=== PATIENT | female | born 1955 | race Caucasian/White ===

== ENCOUNTER 2022-08-04 13:44 | Inpatient (IN) ==
[2022-08-04 18:12] LABS: Basophils % 0.6 % (0.0-0.8); Eosinophils # 0.1 10*3/uL (0.0-0.87); Eosinophils % 2.1 % (0.00-10.9); Hematocrit 45.7 VOL% (35.7-47.0); Hemoglobin 14.9 GM/DL (12.0-16.0); Immature Granulocytes % 0.3 %; Immature Granulocytes Absolute 0.02 #; Lymphocytes # 1.6 10*3/uL (1.4-4.0); Lymphocytes % 24.6 % (21.3-54.2); Mean Corpuscular HGB Conc 32.6 GM/DL (32-36); Mean Corpuscular Volume 83.7 FL (87-102); Mean Platelet Volume 11.8 FL (9.6-12.0); Monocytes # 0.6 10*3/uL (0.11-0.8); Monocytes % 8.2 % (1.7-12.7); Neutrophils % 64.2 % (38.7-73.9); Platelet Count 96 T/CUMM (130-400); Red Blood Count 5.46 MC/CUMM (3.8-5.5); Red Cell Distribution Width 13.7 % (9.3-17.3); White Blood Count 6.7 T/CUMM (4-12)
[2022-08-04 18:31] LABS: Albumin 3.3 G/DL (3.4-5.0); Bilirubin,Total 0.9 MG/DL (0.20-1.00); Calcium 9.2 MG/DL (8.5-10.1); Osmolality,Calculated 282.3 MOS/KG (273-304); Potassium 4.2 MMOL/L (3.5-5.1); Total Protein 7.8 G/DL (6.4-8.2)
[2022-08-04] MEDS ORDERED: cefTRIAXone 1,000 MG in SODIUM CHLORIDE 0.9% 100 ML IV STA (18:48)
[2022-08-04] MEDS ORDERED: SODIUM CHLORIDE 0.9% 1,000 ML IV STA (18:57)
[2022-08-04 19:29] LABS: Anisocytosis Slight; Microcytosis Slight; Platelet Estimate Decreased
[2022-08-04] MEDS ORDERED: hydrALAZINE 20 MG/1 ML VIAL IV PRN (20:05)
[2022-08-04] MEDS ORDERED: ACETAMINOPHEN 325 MG TABLET PO PRN (20:05)
[2022-08-04] MEDS ORDERED: VANCOMYCIN INJ 1,000 MG in SODIUM CHLORIDE 0.9% 250 ML IV STA (20:07)
[2022-08-04] MEDS: MORPHINE 2 MG/1 ML SYRINGE IV PRN (20:22)
[2022-08-04] MEDS: ONDANSETRON 4 MG/2 ML VIAL IV PRN (20:22)
[2022-08-04] MEDS: PIPERACILLIN/TAZOBACTAM 3,375 MG in SODIUM CHLORIDE 0.9% 100 ML IV SCH (22:58)
[2022-08-04] MEDS: SODIUM CHLORIDE 0.9% 1,000 ML IV SCH (22:58)
[2022-08-05] MEDS: ENOXAPARIN 40 MG/0.4 ML SYRINGE SUBCUT SCH ×2 (00:52→20:54)
[2022-08-05] MEDS: MORPHINE 2 MG/1 ML SYRINGE IV PRN ×3 (00:55→13:41)
[2022-08-05] MEDS: INSULIN REGULAR 100 UNIT/ML SUBCUT SCH ×5 (02:46→21:01)
[2022-08-05] MEDS: PIPERACILLIN/TAZOBACTAM 3,375 MG in SODIUM CHLORIDE 0.9% 100 ML IV SCH ×3 (04:16→20:52)
[2022-08-05 05:16] LABS: Basophils % 0.7 % (0.0-0.8); Eosinophils # 0.2 10*3/uL (0.0-0.87); Eosinophils % 3.2 % (0.00-10.9); Hematocrit 40.8 VOL% (35.7-47.0); Immature Granulocytes % 0.4 %; Immature Granulocytes Absolute 0.02 #; Lymphocytes # 1.4 10*3/uL (1.4-4.0); Lymphocytes % 25.2 % (21.3-54.2); Mean Corpuscular HGB Conc 31.9 GM/DL (32-36); Mean Corpuscular Volume 85.4 FL (87-102); Monocytes # 0.6 10*3/uL (0.11-0.8); Neutrophils % 59.5 % (38.7-73.9); Platelet Count 100 T/CUMM (130-400); Red Blood Count 4.78 MC/CUMM (3.8-5.5); Red Cell Distribution Width 13.6 % (9.3-17.3); White Blood Count 5.6 T/CUMM (4-12)
[2022-08-05 05:56] LABS: Albumin 2.8 G/DL (3.4-5.0); Bilirubin,Total 0.7 MG/DL (0.20-1.00); Calcium 8.8 MG/DL (8.5-10.1); Potassium 3.7 MMOL/L (3.5-5.1); Risk Ratio 2.86; Thyroid Stimulating Hormone 5.44 uIU/ml (0.358-3.74); Total Protein 6.6 G/DL (6.4-8.2); VLDL Cholesterol 18.2 MG/DL
[2022-08-05] MEDS: PANTOPRAZOLE 40 MG TABLET PO SCH ×2 (07:49→11:00)
[2022-08-05] MEDS: SODIUM CHLORIDE 0.9% 1,000 ML IV SCH ×3 (11:00→23:55)
[2022-08-05] MEDS ORDERED: DICLOFENAC SODIUM 75 MG TABLET PO PRN (11:12)
[2022-08-05 11:27] LABS: Bilirubin,Urine Negative (Negative); Blood, Urine Negative (Negative); Glucose,Urine (UA) Negative (Negative); Ketones,Urine Negative (Negative); Mucus,Urine Occasional /LPF (Occasional); Nitrite,Urine Negative (Negative); Protein,Urine Negative (Negative); RBC,Urine <1 /HPF (0-4); Squamous Epithelial Cell,Urine Occasional /HPF (0-10); Urine Appearance CLEAR (Clear); Urine Color Straw (Yellow); Urine Urobilinogen < 2.0 eU/dL (<2.0)
[2022-08-05] MEDS: MULTIVITAMIN (BEROCCA) TABLET PO SCH (13:41)
[2022-08-05] MEDS: DIVALPROEX ER 500 MG TABLET PO SCH (13:42)
[2022-08-05] MEDS: VANCOMYCIN INJ 1,000 MG in SODIUM CHLORIDE 0.9% 250 ML IV SCH (13:46)
[2022-08-05] MEDS: ONDANSETRON 4 MG/2 ML VIAL IV PRN (14:08)
[2022-08-05] MEDS: PHENAZOPYRIDINE 95 MG TABLET PO SCH (18:53)
[2022-08-06] MEDS: VANCOMYCIN INJ 1,000 MG in SODIUM CHLORIDE 0.9% 250 ML IV SCH ×2 (01:09→11:56)
[2022-08-06 05:02] LABS: Basophils # 0.1 10*3/uL (0.0-0.2); Eosinophils # 0.3 10*3/uL (0.0-0.87); Hematocrit 37.7 VOL% (35.7-47.0); Immature Granulocytes % 0.2 %; Immature Granulocytes Absolute 0.01 #; Lymphocytes # 1.7 10*3/uL (1.4-4.0); Lymphocytes % 33.7 % (21.3-54.2); Mean Corpuscular HGB Conc 31.8 GM/DL (32-36); Mean Corpuscular Volume 86.7 FL (87-102); Mean Platelet Volume 11.3 FL (9.6-12.0); Monocytes # 0.5 10*3/uL (0.11-0.8); Monocytes % 10.1 % (1.7-12.7); Platelet Count 96 T/CUMM (130-400); Red Blood Count 4.35 MC/CUMM (3.8-5.5); Red Cell Distribution Width 13.9 % (9.3-17.3)
[2022-08-06 05:20] LABS: Calcium 8.3 MG/DL (8.5-10.1); Potassium 4.1 MMOL/L (3.5-5.1)
[2022-08-06 05:22] LABS: Platelet Estimate Decreased
[2022-08-06] MEDS: PIPERACILLIN/TAZOBACTAM 3,375 MG in SODIUM CHLORIDE 0.9% 100 ML IV SCH ×3 (05:42→20:37)
[2022-08-06] MEDS: DIVALPROEX ER 500 MG TABLET PO SCH (08:32)
[2022-08-06] MEDS: CHOLECALCIFEROL 1,000 UNIT TABLET PO SCH (08:32)
[2022-08-06] MEDS: MULTIVITAMIN (BEROCCA) TABLET PO SCH (08:32)
[2022-08-06] MEDS: PHENAZOPYRIDINE 95 MG TABLET PO SCH ×3 (08:32→17:26)
[2022-08-06] MEDS: PANTOPRAZOLE 40 MG TABLET PO SCH (08:32)
[2022-08-06] MEDS ORDERED: ERGOCALCIFEROL 50,000 UNIT CAPSULE PO ONE (11:06)
[2022-08-06] MEDS: INSULIN REGULAR 100 UNIT/ML SUBCUT SCH ×4 (11:38→20:38)
[2022-08-06] MEDS: SODIUM CHLORIDE 0.9% 1,000 ML IV SCH (15:09)
[2022-08-06] MEDS: ENOXAPARIN 40 MG/0.4 ML SYRINGE SUBCUT SCH (20:40)
[2022-08-07] MEDS: VANCOMYCIN INJ 1,000 MG in SODIUM CHLORIDE 0.9% 250 ML IV SCH (00:24)
[2022-08-07 06:56] LABS: Basophils % 0.8 % (0.0-0.8); Eosinophils # 0.3 10*3/uL (0.0-0.87); Eosinophils % 5.9 % (0.00-10.9); Hematocrit 38.2 VOL% (35.7-47.0); Hemoglobin 12.2 GM/DL (12.0-16.0); Immature Granulocytes % 0.2 %; Immature Granulocytes Absolute 0.01 #; Lymphocytes # 1.5 10*3/uL (1.4-4.0); Lymphocytes % 30.5 % (21.3-54.2); Mean Corpuscular HGB Conc 31.9 GM/DL (32-36); Mean Corpuscular Volume 85.7 FL (87-102); Mean Platelet Volume 12.1 FL (9.6-12.0); Monocytes # 0.5 10*3/uL (0.11-0.8); Monocytes % 9.8 % (1.7-12.7); Neutrophils % 52.8 % (38.7-73.9); Red Blood Count 4.46 MC/CUMM (3.8-5.5); Red Cell Distribution Width 13.4 % (9.3-17.3); White Blood Count 4.9 T/CUMM (4-12)
[2022-08-07 07:11] LABS: Platelet Count 58 T/CUMM (130-400)
[2022-08-07 07:24] LABS: Calcium 8.5 MG/DL (8.5-10.1); Potassium 3.5 MMOL/L (3.5-5.1)
[2022-08-07] MEDS: PIPERACILLIN/TAZOBACTAM 3,375 MG in SODIUM CHLORIDE 0.9% 100 ML IV SCH ×3 (10:05→23:47)
[2022-08-07] MEDS: CHOLECALCIFEROL 1,000 UNIT TABLET PO SCH (10:06)
[2022-08-07] MEDS: DIVALPROEX ER 500 MG TABLET PO SCH (10:06)
[2022-08-07] MEDS: PHENAZOPYRIDINE 95 MG TABLET PO SCH ×3 (10:06→17:13)
[2022-08-07] MEDS: MULTIVITAMIN (BEROCCA) TABLET PO SCH (10:06)
[2022-08-07] MEDS: PANTOPRAZOLE 40 MG TABLET PO SCH (10:06)
[2022-08-07] MEDS: SODIUM CHLORIDE 0.9% 1,000 ML IV SCH ×3 (11:11→17:12)
[2022-08-07] MEDS: INSULIN REGULAR 100 UNIT/ML SUBCUT SCH ×4 (11:11→21:12)
[2022-08-07] MEDS: ONDANSETRON 4 MG/2 ML VIAL IV PRN (12:17)
[2022-08-07] MEDS ORDERED: LORazepam 0.5 MG TABLET PO PRN (15:42)
[2022-08-07] MEDS ORDERED: PROMETHAZINE 25 MG TABLET PO PRN (15:42)
[2022-08-07] MEDS ORDERED: RIZATRIPTAN ODT 5 MG TABLET PO PRN (15:42)
[2022-08-07] MEDS: MORPHINE 2 MG/1 ML SYRINGE IV PRN (19:48)
[2022-08-07] MEDS: ZALEPLON 5 MG CAPSULE PO SCH (21:03)
[2022-08-07] MEDS: GABAPENTIN 400 MG CAPSULE PO SCH (21:03)
[2022-08-07] MEDS: GLIMEPIRIDE 2 MG TABLET PO SCH (21:04)
[2022-08-07] MEDS: ENOXAPARIN 40 MG/0.4 ML SYRINGE SUBCUT SCH (21:11)
[2022-08-08] MEDS: SODIUM CHLORIDE 0.9% 1,000 ML IV SCH ×2 (04:30→21:43)
[2022-08-08 05:08] LABS: Basophils % 0.7 % (0.0-0.8); Eosinophils # 0.3 10*3/uL (0.0-0.87); Eosinophils % 5.7 % (0.00-10.9); Hematocrit 35.3 VOL% (35.7-47.0); Hemoglobin 11.3 GM/DL (12.0-16.0); Immature Granulocytes % 0.2 %; Immature Granulocytes Absolute 0.01 #; Lymphocytes # 1.3 10*3/uL (1.4-4.0); Lymphocytes % 29.9 % (21.3-54.2); Mean Corpuscular Volume 85.7 FL (87-102); Mean Platelet Volume 12.3 FL (9.6-12.0); Monocytes # 0.4 10*3/uL (0.11-0.8); Monocytes % 8.6 % (1.7-12.7); Neutrophils % 54.9 % (38.7-73.9); Platelet Count 85 T/CUMM (130-400); Red Blood Count 4.12 MC/CUMM (3.8-5.5); Red Cell Distribution Width 13.7 % (9.3-17.3); White Blood Count 4.4 T/CUMM (4-12)
[2022-08-08 05:26] LABS: Platelet Estimate Decreased
[2022-08-08 05:30] LABS: Calcium 8.1 MG/DL (8.5-10.1); Osmolality,Calculated 284.8 MOS/KG (273-304); Potassium 3.5 MMOL/L (3.5-5.1)
[2022-08-08] MEDS: PIPERACILLIN/TAZOBACTAM 3,375 MG in SODIUM CHLORIDE 0.9% 100 ML IV SCH ×2 (09:18→16:16)
[2022-08-08] MEDS: CETIRIZINE 10 MG TABLET PO SCH (09:19)
[2022-08-08] MEDS: CHOLECALCIFEROL 1,000 UNIT TABLET PO SCH (09:20)
[2022-08-08] MEDS: PANTOPRAZOLE 40 MG TABLET PO SCH (09:20)
[2022-08-08] MEDS: GABAPENTIN 400 MG CAPSULE PO SCH ×3 (09:20→21:40)
[2022-08-08] MEDS: BACILLUS COAGULANS CAPLET PO SCH (09:20)
[2022-08-08] MEDS: MULTIVITAMIN (BEROCCA) TABLET PO SCH (09:20)
[2022-08-08] MEDS: ATORVASTATIN 10 MG TABLET PO SCH (09:20)
[2022-08-08] MEDS: PHENAZOPYRIDINE 95 MG TABLET PO SCH ×3 (09:20→16:15)
[2022-08-08] MEDS: DIVALPROEX ER 500 MG TABLET PO SCH (09:21)
[2022-08-08] MEDS: INSULIN REGULAR 100 UNIT/ML SUBCUT SCH ×4 (11:19→21:40)
[2022-08-08] MEDS ORDERED: ZINC OXIDE PASTE 113 GM TUBE TOP PRN (13:39)
[2022-08-08] MEDS ORDERED: VANCOMYCIN INJ 1,000 MG in SODIUM CHLORIDE 0.9% 250 ML IV SCH (15:00)
[2022-08-08] MEDS: ZALEPLON 5 MG CAPSULE PO SCH (21:39)
[2022-08-08] MEDS: GLIMEPIRIDE 2 MG TABLET PO SCH (21:40)
[2022-08-08] MEDS: LINEZOLID 600 MG TABLET PO SCH (21:40)
[2022-08-08] MEDS: ENOXAPARIN 40 MG/0.4 ML SYRINGE SUBCUT SCH (21:41)
[2022-08-09 05:55] LABS: Basophils % 0.7 % (0.0-0.8); Eosinophils # 0.2 10*3/uL (0.0-0.87); Eosinophils % 5.2 % (0.00-10.9); Hematocrit 35.3 VOL% (35.7-47.0); Hemoglobin 11.4 GM/DL (12.0-16.0); Immature Granulocytes % 0.2 %; Immature Granulocytes Absolute 0.01 #; Lymphocytes # 1.2 10*3/uL (1.4-4.0); Lymphocytes % 27.6 % (21.3-54.2); Mean Corpuscular HGB Conc 32.3 GM/DL (32-36); Mean Corpuscular Volume 86.3 FL (87-102); Mean Platelet Volume 11.7 FL (9.6-12.0); Monocytes # 0.5 10*3/uL (0.11-0.8); Monocytes % 10.5 % (1.7-12.7); Neutrophils % 55.8 % (38.7-73.9); Platelet Count 92 T/CUMM (130-400); Red Blood Count 4.09 MC/CUMM (3.8-5.5); Red Cell Distribution Width 13.7 % (9.3-17.3); White Blood Count 4.5 T/CUMM (4-12)
[2022-08-09 06:22] LABS: Calcium 8.2 MG/DL (8.5-10.1); Osmolality,Calculated 288.7 MOS/KG (273-304)
[2022-08-09] MEDS: INSULIN REGULAR 100 UNIT/ML SUBCUT SCH ×4 (08:02→21:14)
[2022-08-09] MEDS: CETIRIZINE 10 MG TABLET PO SCH (08:24)
[2022-08-09] MEDS: CHOLECALCIFEROL 1,000 UNIT TABLET PO SCH (08:24)
[2022-08-09] MEDS: BACILLUS COAGULANS CAPLET PO SCH (08:24)
[2022-08-09] MEDS: LINEZOLID 600 MG TABLET PO SCH ×2 (08:24→21:20)
[2022-08-09] MEDS: MULTIVITAMIN (BEROCCA) TABLET PO SCH (08:24)
[2022-08-09] MEDS: GABAPENTIN 400 MG CAPSULE PO SCH ×3 (08:24→21:20)
[2022-08-09] MEDS: ATORVASTATIN 10 MG TABLET PO SCH (08:25)
[2022-08-09] MEDS: DIVALPROEX ER 500 MG TABLET PO SCH (08:25)
[2022-08-09] MEDS: PANTOPRAZOLE 40 MG TABLET PO SCH (08:25)
[2022-08-09] MEDS ORDERED: ROPIVACAINE 0.5% 30 ML VIAL NERVEBLOCK ONE (10:13)
[2022-08-09] MEDS ORDERED: TRIAMCINOLONE ACETONIDE 40 MG/1 ML VIAL MISC INJ ONE (10:13)
[2022-08-09] MEDS: SODIUM CHLORIDE 0.9% 1,000 ML IV SCH (21:19)
[2022-08-09] MEDS: ZALEPLON 5 MG CAPSULE PO SCH (21:20)
[2022-08-09] MEDS: ENOXAPARIN 40 MG/0.4 ML SYRINGE SUBCUT SCH (21:20)
[2022-08-09] MEDS: GLIMEPIRIDE 2 MG TABLET PO SCH (21:20)
[2022-08-10 04:35] LABS: Basophils % 0.6 % (0.0-0.8); Eosinophils % 0.8 % (0.00-10.9); Hematocrit 35.7 VOL% (35.7-47.0); Hemoglobin 11.5 GM/DL (12.0-16.0); Immature Granulocytes % 0.2 %; Immature Granulocytes Absolute 0.01 #; Lymphocytes % 20.8 % (21.3-54.2); Mean Corpuscular HGB Conc 32.2 GM/DL (32-36); Mean Platelet Volume 11.6 FL (9.6-12.0); Monocytes # 0.3 10*3/uL (0.11-0.8); Monocytes % 6.7 % (1.7-12.7); Neutrophils % 70.9 % (38.7-73.9); Platelet Count 101 T/CUMM (130-400); Red Blood Count 4.15 MC/CUMM (3.8-5.5); Red Cell Distribution Width 13.8 % (9.3-17.3); White Blood Count 4.8 T/CUMM (4-12)
[2022-08-10 05:02] LABS: Hypochromia Slight; Microcytosis Slight
[2022-08-10 05:07] LABS: Calcium 8.2 MG/DL (8.5-10.1); Osmolality,Calculated 282.3 MOS/KG (273-304); Potassium 3.8 MMOL/L (3.5-5.1)
[2022-08-10] MEDS: INSULIN REGULAR 100 UNIT/ML SUBCUT SCH ×2 (08:25→12:06)
[2022-08-10] MEDS: DIVALPROEX ER 500 MG TABLET PO SCH (08:34)
[2022-08-10] MEDS: MULTIVITAMIN (BEROCCA) TABLET PO SCH (08:34)
[2022-08-10] MEDS: ATORVASTATIN 10 MG TABLET PO SCH (08:35)
[2022-08-10] MEDS: BACILLUS COAGULANS CAPLET PO SCH (08:35)
[2022-08-10] MEDS: LINEZOLID 600 MG TABLET PO SCH (08:35)
[2022-08-10] MEDS: PANTOPRAZOLE 40 MG TABLET PO SCH (08:35)
[2022-08-10] MEDS: GABAPENTIN 400 MG CAPSULE PO SCH (08:35)
[2022-08-10] MEDS: CETIRIZINE 10 MG TABLET PO SCH (08:35)
[2022-08-10] MEDS: CHOLECALCIFEROL 1,000 UNIT TABLET PO SCH (08:35)
[2022-08-10 11:24] VITALS: BP 122/60
[2022-08-10] MEDS: ONDANSETRON 4 MG/2 ML VIAL IV PRN (12:24)
[2022-08-10] MEDS ORDERED: INFLUENZA VIRUS VACCINE 0.5 ML SYRINGE IM ONE (13:00)
[2022-08-10] MEDS ORDERED: PNEUMOCOCCAL VACCINE (13 VALENT) 0.5 ML SYRINGE IM ONE (13:00)
== END 2022-08-10 13:59 | disposition home or self-care (01) | DRG 603 ==
LOC: N.EDINP 13:44 → N.ED 13:44 → SUATTDRO 20:04 → N.3E 08-05 02:26 → SUATTDRO 08-06 15:25
PROVIDERS: ADMIT Hospitalist; ATTEND Hospitalist

== ENCOUNTER 2022-11-04 20:09 | Inpatient (IN) ==
[2022-11-04 22:10] LABS: Basophils % 0.8 % (0.0-0.8); Eosinophils # 0.1 10*3/uL (0.0-0.87); Hemoglobin 11.7 GM/DL (12.0-16.0); Immature Granulocytes % 0.2 %; Immature Granulocytes Absolute 0.01 #; Lymphocytes # 1.6 10*3/uL (1.4-4.0); Mean Corpuscular HGB Conc 32.5 GM/DL (32-36); Mean Corpuscular Volume 84.1 FL (87-102); Monocytes # 0.8 10*3/uL (0.11-0.8); Platelet Count 85 T/CUMM (130-400); Red Blood Count 4.28 MC/CUMM (3.8-5.5); Red Cell Distribution Width 13.1 % (9.3-17.3)
[2022-11-04 22:28] LABS: Platelet Estimate Decreased
[2022-11-04 22:33] LABS: Albumin 3.3 G/DL (3.4-5.0); Bilirubin,Total 0.7 MG/DL (0.20-1.00); Osmolality,Calculated 281.1 MOS/KG (273-304); Total Protein 6.7 G/DL (6.4-8.2)
[2022-11-04] MEDS ORDERED: VANCOMYCIN INJ 1,000 MG in SODIUM CHLORIDE 0.9% 250 ML IV STA (22:39)
[2022-11-05] MEDS ORDERED: MORPHINE 2 MG/1 ML SYRINGE IV PRN (00:16)
[2022-11-05] MEDS ORDERED: GLUCAGON 1 MG VIAL IM PRN (00:16)
[2022-11-05] MEDS ORDERED: hydrALAZINE 20 MG/1 ML VIAL IV PRN (00:16)
[2022-11-05] MEDS ORDERED: DEXTROSE 10% 250 ML BAG IV PRN (00:32)
[2022-11-05] MEDS ORDERED: SODIUM CHLORIDE 0.9% 1,000 ML IV SCH (00:45)
[2022-11-05 05:42] LABS: Basophils % 0.6 % (0.0-0.8); Eosinophils # 0.1 10*3/uL (0.0-0.87); Eosinophils % 2.8 % (0.00-10.9); Hematocrit 34.6 VOL% (35.7-47.0); Hemoglobin 11.1 GM/DL (12.0-16.0); Immature Granulocytes % 0.2 %; Immature Granulocytes Absolute 0.01 #; Lymphocytes # 1.9 10*3/uL (1.4-4.0); Lymphocytes % 39.8 % (21.3-54.2); Mean Corpuscular HGB Conc 32.1 GM/DL (32-36); Mean Corpuscular Volume 86.1 FL (87-102); Mean Platelet Volume 11.1 FL (9.6-12.0); Monocytes # 0.7 10*3/uL (0.11-0.8); Monocytes % 13.9 % (1.7-12.7); Neutrophils % 42.7 % (38.7-73.9); Platelet Count 82 T/CUMM (130-400); Red Blood Count 4.02 MC/CUMM (3.8-5.5); Red Cell Distribution Width 13.1 % (9.3-17.3); White Blood Count 4.7 T/CUMM (4-12)
[2022-11-05 06:11] LABS: Bilirubin,Total 0.6 MG/DL (0.20-1.00); Calcium 8.4 MG/DL (8.5-10.1); Osmolality,Calculated 281.1 MOS/KG (273-304); Potassium 4.3 MMOL/L (3.5-5.1); Risk Ratio 2.48; Thyroid Stimulating Hormone 2.92 uIU/ml (0.358-3.74); Total Protein 6.4 G/DL (6.4-8.2)
[2022-11-05 07:33] LABS: Anisocytosis Slight; Ovalocytes Few; Platelet Estimate Decreased
[2022-11-05] MEDS ORDERED: PROMETHAZINE 25 MG TABLET PO PRN (07:38)
[2022-11-05] MEDS: INSULIN LISPRO 100 UNIT/ML SUBCUT SCH ×4 (08:36→20:41)
[2022-11-05] MEDS: fentaNYL 25 MCG/HR PATCH TRANSDERM SCH (09:28)
[2022-11-05] MEDS: GABAPENTIN 400 MG CAPSULE PO SCH ×3 (09:28→20:43)
[2022-11-05] MEDS: PANTOPRAZOLE 40 MG TABLET PO SCH (09:28)
[2022-11-05] MEDS: PIPERACILLIN/TAZOBACTAM 3,375 MG in SODIUM CHLORIDE 0.9% 100 ML IV SCH ×2 (09:28→17:55)
[2022-11-05] MEDS: CETIRIZINE 10 MG TABLET PO SCH (09:28)
[2022-11-05] MEDS ORDERED: NITROGLYCERIN SL 0.4 MG TABLET SL ONE (09:57)
[2022-11-05] MEDS ORDERED: HYDROCORTISONE 1% CREAM 28 GM TUBE TOP PRN (11:16)
[2022-11-05] MEDS: ZALEPLON 5 MG CAPSULE PO SCH (20:43)
[2022-11-05] MEDS: LORazepam 1 MG TABLET PO PRN (20:45)
[2022-11-06] MEDS: VANCOMYCIN INJ 1,000 MG in SODIUM CHLORIDE 0.9% 250 ML IV SCH ×2 (00:26→23:57)
[2022-11-06] MEDS: PIPERACILLIN/TAZOBACTAM 3,375 MG in SODIUM CHLORIDE 0.9% 100 ML IV SCH ×3 (01:54→18:36)
[2022-11-06] MEDS: ONDANSETRON 4 MG/2 ML VIAL IV PRN (04:52)
[2022-11-06 05:02] LABS: Basophils % 0.8 % (0.0-0.8); Eosinophils # 0.1 10*3/uL (0.0-0.87); Eosinophils % 2.8 % (0.00-10.9); Hematocrit 35.4 VOL% (35.7-47.0); Immature Granulocytes % 0.3 %; Immature Granulocytes Absolute 0.01 #; Lymphocytes # 1.6 10*3/uL (1.4-4.0); Lymphocytes % 39.9 % (21.3-54.2); Mean Corpuscular HGB Conc 31.1 GM/DL (32-36); Mean Corpuscular Volume 86.8 FL (87-102); Mean Platelet Volume 11.4 FL (9.6-12.0); Monocytes # 0.5 10*3/uL (0.11-0.8); Monocytes % 12.6 % (1.7-12.7); Neutrophils % 43.6 % (38.7-73.9); Platelet Count 88 T/CUMM (130-400); Red Blood Count 4.08 MC/CUMM (3.8-5.5); Red Cell Distribution Width 13.1 % (9.3-17.3); White Blood Count 3.9 T/CUMM (4-12)
[2022-11-06 05:10] LABS: Calcium 8.4 MG/DL (8.5-10.1); Osmolality,Calculated 287.6 MOS/KG (273-304); Potassium 4.6 MMOL/L (3.5-5.1)
[2022-11-06 08:12] LABS: Platelet Estimate Decreased
[2022-11-06] MEDS: INSULIN LISPRO 100 UNIT/ML SUBCUT SCH ×4 (08:39→20:57)
[2022-11-06] MEDS: GABAPENTIN 400 MG CAPSULE PO SCH ×3 (10:56→20:57)
[2022-11-06] MEDS: PANTOPRAZOLE 40 MG TABLET PO SCH (10:56)
[2022-11-06] MEDS: CETIRIZINE 10 MG TABLET PO SCH (10:56)
[2022-11-06] MEDS: DEXTROSE 5% NACL 0.45% 1,000 ML IV SCH (11:04)
[2022-11-06] MEDS ORDERED: BISACODYL 10 MG SUPP RECTAL PRN (11:17)
[2022-11-06] MEDS ORDERED: MAGNESIUM HYDROXIDE SUSP 30 ML UDCUP PO PRN (11:17)
[2022-11-06] MEDS: DOCUSATE SODIUM 100 MG CAPSULE PO SCH ×2 (13:04→20:56)
[2022-11-06] MEDS: ZALEPLON 5 MG CAPSULE PO SCH (20:56)
[2022-11-06] MEDS: ENOXAPARIN 40 MG/0.4 ML SYRINGE SUBCUT SCH (20:56)
[2022-11-06] MEDS: GABAPENTIN 600 MG TABLET PO SCH (20:56)
[2022-11-07] MEDS: PIPERACILLIN/TAZOBACTAM 3,375 MG in SODIUM CHLORIDE 0.9% 100 ML IV SCH ×3 (01:44→19:30)
[2022-11-07] MEDS: DEXTROSE 5% NACL 0.45% 1,000 ML IV SCH (05:06)
[2022-11-07 05:36] LABS: Basophils % 0.5 % (0.0-0.8); Eosinophils # 0.1 10*3/uL (0.0-0.87); Eosinophils % 2.6 % (0.00-10.9); Hematocrit 33.3 VOL% (35.7-47.0); Hemoglobin 10.5 GM/DL (12.0-16.0); Immature Granulocytes % 0.3 %; Immature Granulocytes Absolute 0.01 #; Lymphocytes # 1.7 10*3/uL (1.4-4.0); Lymphocytes % 42.4 % (21.3-54.2); Mean Corpuscular HGB Conc 31.5 GM/DL (32-36); Mean Corpuscular Volume 87.2 FL (87-102); Mean Platelet Volume 11.6 FL (9.6-12.0); Monocytes # 0.5 10*3/uL (0.11-0.8); Monocytes % 12.9 % (1.7-12.7); Neutrophils % 41.3 % (38.7-73.9); Red Blood Count 3.82 MC/CUMM (3.8-5.5); Red Cell Distribution Width 13.2 % (9.3-17.3); White Blood Count 3.9 T/CUMM (4-12)
[2022-11-07 05:40] LABS: Platelet Count 99 T/CUMM (130-400)
[2022-11-07 05:56] LABS: Calcium 8.9 MG/DL (8.5-10.1); Osmolality,Calculated 283.8 MOS/KG (273-304); Potassium 4.7 MMOL/L (3.5-5.1)
[2022-11-07 06:00] LABS: Hypochromia Slight; Platelet Estimate Decreased
[2022-11-07 06:01] LABS: Microcytosis Slight
[2022-11-07] MEDS: INSULIN LISPRO 100 UNIT/ML SUBCUT SCH ×4 (08:20→21:36)
[2022-11-07] MEDS: GABAPENTIN 400 MG CAPSULE PO SCH ×2 (08:36→21:35)
[2022-11-07] MEDS: PANTOPRAZOLE 40 MG TABLET PO SCH (08:36)
[2022-11-07] MEDS: POLYETHYLENE GLYCOL POWDER 17 GM PACK PO SCH (08:36)
[2022-11-07] MEDS: CETIRIZINE 10 MG TABLET PO SCH (08:36)
[2022-11-07] MEDS: DOCUSATE SODIUM 100 MG CAPSULE PO SCH ×2 (08:36→21:35)
[2022-11-07] MEDS: ZALEPLON 5 MG CAPSULE PO SCH (21:35)
[2022-11-07] MEDS: LORazepam 1 MG TABLET PO PRN (21:35)
[2022-11-07] MEDS: ENOXAPARIN 40 MG/0.4 ML SYRINGE SUBCUT SCH (21:35)
[2022-11-07] MEDS: GABAPENTIN 600 MG TABLET PO SCH (21:35)
[2022-11-08] MEDS: VANCOMYCIN INJ 1,000 MG in SODIUM CHLORIDE 0.9% 250 ML IV SCH (00:39)
[2022-11-08] MEDS: PIPERACILLIN/TAZOBACTAM 3,375 MG in SODIUM CHLORIDE 0.9% 100 ML IV SCH ×3 (02:52→19:13)
[2022-11-08 05:22] LABS: Basophils % 0.5 % (0.0-0.8); Eosinophils # 0.1 10*3/uL (0.0-0.87); Eosinophils % 3.3 % (0.00-10.9); Hematocrit 33.1 VOL% (35.7-47.0); Hemoglobin 10.7 GM/DL (12.0-16.0); Immature Granulocytes % 0.3 %; Immature Granulocytes Absolute 0.01 #; Lymphocytes # 1.5 10*3/uL (1.4-4.0); Lymphocytes % 42.2 % (21.3-54.2); Mean Corpuscular HGB Conc 32.3 GM/DL (32-36); Monocytes # 0.5 10*3/uL (0.11-0.8); Monocytes % 13.7 % (1.7-12.7); Platelet Count 113 T/CUMM (130-400); Red Blood Count 3.85 MC/CUMM (3.8-5.5); Red Cell Distribution Width 13.4 % (9.3-17.3); White Blood Count 3.7 T/CUMM (4-12)
[2022-11-08 05:55] LABS: Calcium 8.5 MG/DL (8.5-10.1); Osmolality,Calculated 283.8 MOS/KG (273-304); Potassium 4.3 MMOL/L (3.5-5.1)
[2022-11-08] MEDS: ONDANSETRON 4 MG/2 ML VIAL IV PRN (09:25)
[2022-11-08] MEDS: GABAPENTIN 400 MG CAPSULE PO SCH ×2 (09:26→21:21)
[2022-11-08] MEDS: fentaNYL 25 MCG/HR PATCH TRANSDERM SCH (09:26)
[2022-11-08] MEDS: INSULIN LISPRO 100 UNIT/ML SUBCUT SCH ×4 (09:26→21:13)
[2022-11-08] MEDS: PANTOPRAZOLE 40 MG TABLET PO SCH (09:26)
[2022-11-08] MEDS: CETIRIZINE 10 MG TABLET PO SCH (09:26)
[2022-11-08] MEDS: POLYETHYLENE GLYCOL POWDER 17 GM PACK PO SCH (09:27)
[2022-11-08] MEDS: DOCUSATE SODIUM 100 MG CAPSULE PO SCH ×2 (09:27→21:13)
[2022-11-08] MEDS: TRIAMCINOLONE 0.1% CREAM 15 GM TUBE TOP SCH ×2 (14:09→21:13)
[2022-11-08] MEDS ORDERED: ZINC OXIDE 16% PASTE 57 GM TUBE TOP PRN (14:47)
[2022-11-08] MEDS: GABAPENTIN 600 MG TABLET PO SCH (21:12)
[2022-11-08] MEDS: ZALEPLON 5 MG CAPSULE PO SCH (21:12)
[2022-11-08] MEDS: ENOXAPARIN 40 MG/0.4 ML SYRINGE SUBCUT SCH (21:13)
[2022-11-08] MEDS: DEXTROSE 5% NACL 0.45% 1,000 ML IV SCH ×2 (21:14→21:30)
[2022-11-08] MEDS: LORazepam 1 MG TABLET PO PRN (21:18)
[2022-11-09] MEDS: VANCOMYCIN INJ 1,000 MG in SODIUM CHLORIDE 0.9% 250 ML IV SCH (00:39)
[2022-11-09] MEDS: PIPERACILLIN/TAZOBACTAM 3,375 MG in SODIUM CHLORIDE 0.9% 100 ML IV SCH ×2 (02:15→09:42)
[2022-11-09 05:14] LABS: Basophils % 0.8 % (0.0-0.8); Eosinophils # 0.1 10*3/uL (0.0-0.87); Eosinophils % 3.8 % (0.00-10.9); Hematocrit 33.3 VOL% (35.7-47.0); Hemoglobin 10.3 GM/DL (12.0-16.0); Lymphocytes # 1.6 10*3/uL (1.4-4.0); Lymphocytes % 43.4 % (21.3-54.2); Mean Corpuscular HGB Conc 30.9 GM/DL (32-36); Mean Corpuscular Volume 86.5 FL (87-102); Mean Platelet Volume 10.8 FL (9.6-12.0); Monocytes # 0.6 10*3/uL (0.11-0.8); Monocytes % 15.1 % (1.7-12.7); Neutrophils % 36.9 % (38.7-73.9); Platelet Count 116 T/CUMM (130-400); Red Blood Count 3.85 MC/CUMM (3.8-5.5); Red Cell Distribution Width 13.6 % (9.3-17.3); White Blood Count 3.7 T/CUMM (4-12)
[2022-11-09 05:43] LABS: Calcium 8.9 MG/DL (8.5-10.1); Osmolality,Calculated 290.4 MOS/KG (273-304); Potassium 4.6 MMOL/L (3.5-5.1)
[2022-11-09 05:52] LABS: Eosinophils 6 % (0-10); Hypochromia Slight; Lymphocytes 37 % (20-55); Microcytosis Slight; Total Cells Counted 100
[2022-11-09] MEDS: INSULIN LISPRO 100 UNIT/ML SUBCUT SCH ×3 (09:24→17:34)
[2022-11-09] MEDS: PANTOPRAZOLE 40 MG TABLET PO SCH (09:30)
[2022-11-09] MEDS: DOCUSATE SODIUM 100 MG CAPSULE PO SCH ×2 (09:30→09:41)
[2022-11-09] MEDS: GABAPENTIN 400 MG CAPSULE PO SCH (09:30)
[2022-11-09] MEDS: CETIRIZINE 10 MG TABLET PO SCH (09:31)
[2022-11-09] MEDS: POLYETHYLENE GLYCOL POWDER 17 GM PACK PO SCH ×2 (09:31→09:41)
[2022-11-09] MEDS: ACYCLOVIR 5% OINT 15 GM TUBE TOP SCH ×3 (09:40→15:32)
[2022-11-09] MEDS: TRIAMCINOLONE 0.1% CREAM 15 GM TUBE TOP SCH (09:40)
[2022-11-09] MEDS: ONDANSETRON 4 MG/2 ML VIAL IV PRN (10:53)
[2022-11-09 16:31] VITALS: BP 125/73
== END 2022-11-09 18:33 | disposition home or self-care (01) | DRG 603 ==
LOC: N.ED 20:09 → N.EDINP 11-05 00:10 → SUATTDRO 11-05 00:10 → N.EDINP 11-05 01:20 → N.TELES 11-05 02:09
PROVIDERS: ADMIT Internal Medicine; ATTEND Internal Medicine Geriatric Medicine